=== PATIENT | male | born 1955 | race Caucasian/White ===

== ENCOUNTER 2017-05-25 09:39 | Emergency (ER) | payer MEDICARE, OTHER ==
[~2017-05-25] VITALS: Ht 177.8 cm; Wt 100.0 kg
[2017-05-25 09:45] VITALS: BP 107/74; PULSE 100; RESP 16; TEMP 98.6; O2SAT 96
[2017-05-25] MEDS ORDERED: OXYC1TAB36 (10:38)
[2017-05-25] MEDS ORDERED: [UNRECOGNIZED DRUG - OTHER] (10:38)
[2017-05-25] MEDS ORDERED: CEPH500C PO (10:38)
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
[2017-05-25 11:25] LABS: AUTOMATED NEUTROPHIL # 6.9 TH/MM3 (1.8-7.7); BASOPHIL % 0.5 % (0.0-2.0); EOSINOPHIL # 0.1 TH/MM3 (0-0.4); EOSINOPHIL % 0.9 % (0.0-4.0); HEMATOCRIT 40.1 % (39.0-51.0); HEMOGLOBIN 13.3 GM/DL (13.0-17.0); LYMPH % 19.9 % (9.0-44.0); LYMPHOCYTE # 1.9 TH/MM3 (1.0-4.8); MEAN CELL VOLUME 96.5 FL (80.0-100.0); MEAN CORPUSCULAR HGB CONC 33.1 % (32.0-36.0); MONO % 6.6 % (0.0-8.0); MONOCYTE # 0.6 TH/MM3 (0-0.9); NEUT % 72.1 % (16.0-70.0); PLATELET COUNT 213 TH/MM3 (150-450); RED BLOOD COUNT 4.15 MIL/MM3 (4.50-5.90); RED CELL DISTRIBUTION WIDTH 14.8 % (11.6-17.2); WHITE BLOOD COUNT 9.5 TH/MM3 (4.0-11.0)
[2017-05-25 11:44] LABS: BILIRUBIN, URINE NEG (NEG); BLOOD, URINE LARGE (NEG); GLUCOSE,URINE NEG (NEG); KETONE, URINE NEG (NEG); NITRITE,URINE POS (NEG); PH, URINE 5.5 (5.0-8.5); URINE COLOR YELLOW (YELLW/STRAW); URINE LEUKOCYTE ESTERASE MOD (NEG)
[2017-05-25 11:49] LABS: SQUAMOUS EPITHELIAL CELL URINE 0-5 /hpf (0-5); WBC, URINE INNUM /hpf (0-5)
[2017-05-25 11:50] LABS: BACTERIA, URINE FEW /hpf
[2017-05-25 11:52] LABS: ALBUMIN 2.4 GM/DL (3.4-5.0); ALKALINE PHOSPHATASE 135 U/L (45-117); ALT (GPT) 19 U/L (12-78); AST (GOT) 23 U/L (15-37); BICARBONATE 34.1 MEQ/L (21.0-32.0); BLOOD UREA NITROGEN 4 MG/DL (7-18); CALCIUM 8.5 MG/DL (8.5-10.1); CHLORIDE 91 MEQ/L (98-107); CREATININE 0.75 MG/DL (0.60-1.30); GLOMERULAR FILTRATION RATE 107 ML/MIN (>89); GLUCOSE,RANDOM 128 MG/DL (74-106); SODIUM (NA) 132 MEQ/L (136-145); TOTAL BILIRUBIN ADULT 0.9 MG/DL (0.2-1.0); TOTAL PROTEIN 7.7 GM/DL (6.4-8.2)
[2017-05-25] MEDS ORDERED: POTASSIUM CHLORIDE 20 MEQ CONTROLLED RELEASE TAB PO ONE ×2 (12:00→14:00)
--- NOTE | 2017-05-25 12:49 | RADRPT ---
EXAM DATE/TIME: 05/25/2017 11:39 [facility] COMPARISON: No previous studies available for comparison. INDICATIONS : Testicular pain and swelling, worse on right side. MEDICAL HISTORY : Chronic obstructive pulmonary disease. Hepatitis C. Congestive heart failure. Arthritis. Diabetes. SURGICAL HISTORY : Appendectomy. Spinal fusion. ENCOUNTER: Initial ACUITY: 4 - 6 days PAIN SCORE: 4/10 LOCATION: Bilateral scrotum. MEASUREMENTS: RIGHT TESTICLE: 4.6 x 3.1 x 2.9 cm LEFT TESTICLE: 3.6 x 2.7 x 2.5cm FINDINGS: RIGHT TESTICLE: There is increased flow in the right testicle and epididymis. The right testicle is larger than the l eft testicle. The epididymis appears prominent. There is a complex hydrocele with multiple septations . LEFT TESTICLE: Left testicle is smaller than the right testicle. There is mild arterial flow seen in the left testic le. No hydrocele is seen. The epididymis is not seen but not enlarged. SCROTUM: There is scrotal swelling. CONCLUSION: Suspect inflammatory change of the right side with increased flow seen in the right testicle and righ t epididymis and complex hydrocele likely related to epididymitis and orchitis. There is skin thicken ing of the scrotum. Lionel Sanabria MD on May 25, 2017 at 12:43 Board Certified Radiologist. This report was verified electronically.
--- NOTE | 2017-05-25 13:38 | RADRPT ---
EXAM DATE/TIME: 05/25/2017 11:11 [facility] COMPARISON: CHEST SINGLE AP, December 28, 2009, 16:54. INDICATIONS : Testicular swelling x 4 days & chronic lower extremity swelling. MEDICAL HISTORY : Congestive heart failure. Chronic obstructive pulmonary disease. Rheumatoid arthritis. Diabetic. Smoker. Hepatitis C. SURGICAL HISTORY : Appendectomy. Fusion, lumbar. ENCOUNTER: Initial ACUITY: 4 - 6 days PAIN SCORE: 1/10 LOCATION: chest FINDINGS: The heart is enlarged. Bibasilar patchiness is noted consistent with atelectasis and/or infiltrate. CONCLUSION: 1. Bibasilar patchiness consistent with atelectasis and/or infiltrate. 2. Cardiomegaly. Kvng Landis MD on May 25, 2017 at 13:35 Board Certified Radiologist. This report was verified electronically.
[2017-05-25] MEDS ORDERED: LEVA500T33 PO (13:42)
[2017-05-25] MEDS ORDERED: POTA-163 PO (13:42)
[2017-05-25] MEDS ORDERED: LEVOFLOXACIN 500 MG TAB PO ONE (14:00)
== END 2017-05-25 14:19 | disposition home or self-care (01) ==
LOC: PHEFT 09:39
DX: N45.1 Epididymitis (principal); N30.01 Acute cystitis with hematuria; B96.20 Unspecified Escherichia coli [E. coli] as the cause of diseases classified elsewhere; E87.6 Hypokalemia; I50.9 Heart failure, unspecified; E11.9 Type 2 diabetes mellitus without complications; B19.20 Unspecified viral hepatitis C without hepatic coma; F17.200 Nicotine dependence, unspecified, uncomplicated; F12.90 Cannabis use, unspecified, uncomplicated
CPT/HCPCS: 71045; 76870; 80053; 81001; 83880; 85025; 87077; 87086; 87186; 93975

== ENCOUNTER 2017-05-29 09:24 | Inpatient (IN) | payer MEDICARE, OTHER ==
[2017-05-29] VITALS (8 sets, daily range): BP systolic 114–150; BP diastolic 66–82; PULSE 83–104; RESP 14–20; TEMP 96.3–98.5; O2SAT 95–99
[~2017-05-29] VITALS: Ht 177.8 cm; Wt 99.8 kg
[~2017-05-29 09:24] MED LIST: CEPH500C PO; LEVA500T33 PO; OXYC1TAB36; POTA-163 PO; [UNRECOGNIZED DRUG - OTHER]
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
[2017-05-29 10:09] LABS: AUTOMATED NEUTROPHIL # 4.1 TH/MM3 (1.8-7.7); BASOPHIL # 0.2 TH/MM3 (0-0.2); BASOPHIL % 2.9 % (0.0-2.0); EOSINOPHIL # 0.1 TH/MM3 (0-0.4); EOSINOPHIL % 1.2 % (0.0-4.0); HEMATOCRIT 40.7 % (39.0-51.0); HEMOGLOBIN 13.4 GM/DL (13.0-17.0); LYMPH % 28.6 % (9.0-44.0); LYMPHOCYTE # 2.2 TH/MM3 (1.0-4.8); MEAN CELL VOLUME 96.3 FL (80.0-100.0); MEAN CORPUSCULAR HEMOGLOBIN 31.8 PG (27.0-34.0); MEAN PLATELET VOLUME 6.8 FL (7.0-11.0); MONO % 12.6 % (0.0-8.0); NEUT % 54.7 % (16.0-70.0); PLATELET COUNT 264 TH/MM3 (150-450); RED BLOOD COUNT 4.22 MIL/MM3 (4.50-5.90); RED CELL DISTRIBUTION WIDTH 15.3 % (11.6-17.2); WHITE BLOOD COUNT 7.6 TH/MM3 (4.0-11.0)
[2017-05-29 10:19] LABS: BILIRUBIN, URINE NEG (NEG); BLOOD, URINE MOD (NEG); GLUCOSE,URINE NEG (NEG); KETONE, URINE NEG (NEG); NITRITE,URINE NEG (NEG); URINE COLOR YELLOW (YELLW/STRAW); URINE LEUKOCYTE ESTERASE SMALL (NEG)
[2017-05-29 10:24] LABS: CHLORIDE 98 MEQ/L (98-107); SODIUM (NA) 139 MEQ/L (136-145)
[2017-05-29 10:27] LABS: CALCIUM 8.9 MG/DL (8.5-10.1)
[2017-05-29 10:28] LABS: ALBUMIN 2.4 GM/DL (3.4-5.0); BICARBONATE 33.4 MEQ/L (21.0-32.0); BLOOD UREA NITROGEN 3 MG/DL (7-18); GLUCOSE,RANDOM 176 MG/DL (74-106)
--- NOTE | 2017-05-29 10:29 | RADRPT ---
EXAM DATE/TIME: 05/29/2017 10:13 [facility] COMPARISON: CHEST SINGLE AP, May 25, 2017, 11:11. INDICATIONS : Pt having testicle pain and swelling, last seen for on 05/25/2017. Pt now having lower back and lower abdominal pain as well. MEDICAL HISTORY : None. SURGICAL HISTORY : None. ENCOUNTER: Subsequent ACUITY: 1 week PAIN SCORE: 8/10 LOCATION: Bilateral abdomen, lower back, testicles FINDINGS: A single view of the chest demonstrates the lungs to be symmetrically aerated without evidence of mas s, infiltrate or effusion. The cardiomediastinal contours are unremarkable except there is now an el ectronic device projecting over the heart, possibly a recorder/monitor. Osseous structures are intac t with a mild dextroscoliosis of the thoracolumbar spine. CONCLUSION: No acute cardiopulmonary process. Ramon Gutierrez MD on May 29, 2017 at 10:25 Board Certified Radiologist. This report was verified electronically.
[2017-05-29 10:31] LABS: ALT (GPT) 23 U/L (12-78); AST (GOT) 30 U/L (15-37); CREATININE 0.68 MG/DL (0.60-1.30); GLOMERULAR FILTRATION RATE 119 ML/MIN (>89)
[2017-05-29 10:32] LABS: TOTAL BILIRUBIN ADULT 0.3 MG/DL (0.2-1.0)
[2017-05-29 10:34] LABS: ALKALINE PHOSPHATASE 138 U/L (45-117)
[2017-05-29 10:36] LABS: LACTIC ACID SEPSIS PROTOCOL 2.8 mmol/L (0.4-2.0)
[2017-05-29 10:42] LABS: BACTERIA, URINE RARE /hpf; SQUAMOUS EPITHELIAL CELL URINE 0-3 /hpf (0-5); WBC, URINE 15-19 /hpf (0-5); WHITE BLOOD CELL CLUMPS FEW
[2017-05-29] MEDS ORDERED: cefTRIAXone INJ 2,000 MG in SODIUM CHLORIDE 0.9% INJ 100 ML IV ONE (10:45)
[2017-05-29] MEDS ORDERED: ONDANSETRON HCL 4 MG/2 ML VIAL IV PUSH ONE (10:45)
[2017-05-29] MEDS ORDERED: SODIUM CHLOR 0.9% 1000 ML INJ 1,000 ML IV ONE ×2 (10:45→11:15)
[2017-05-29] MEDS ORDERED: HYDROmorphone HCL PF 2 MG/ML VIAL IV PUSH ONE (10:45)
[2017-05-29] MEDS ORDERED: POTASSIUM CHLOR 20 MEQ PREMIX 100 ML IV ONE (11:15)
[2017-05-29] MEDS ORDERED: KETOROLAC TROMETHAMINE 30 MG/ML (IVP) VIAL IV PUSH PRN (12:30)
[2017-05-29] MEDS ORDERED: MAGNESIUM HYDROXIDE SUSP 30 ML CUP PO PRN (12:30)
[2017-05-29] MEDS ORDERED: SODIUM CHLORIDE 0.9% FLUSH 10 ML FLUSH IV FLUSH PRN (12:30)
[2017-05-29] MEDS ORDERED: ACETAMINOPHEN 325 MG TAB PO PRN (12:30)
[2017-05-29] MEDS ORDERED: NALOXONE HCL 0.4 MG/ML AMP IV PUSH PRN (12:30)
[2017-05-29] MEDS ORDERED: SODIUM CHLOR 0.9% 1000 ML INJ 1,000 ML IV SCH (13:00)
[2017-05-29] MEDS: POLYETHYLENE GLYCOL 17 GM PKG PO SCH (15:30)
[2017-05-29] MEDS ORDERED: POTASSIUM CHLORIDE 10 MEQ CONTROLLED RELEASE TAB PO ONE (15:30)
[2017-05-29] MEDS ORDERED: RESP: ALBUTEROL 2.5 MG/IPRATROPIUM 0.5 MG NEB (PRN) NEB (15:30)
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
[2017-05-29] MEDS: TAMSULOSIN HCL 0.4 MG CAP PO SCH (18:24)
[2017-05-29] MEDS: oxyCODONE/ACETAMINOPHEN 10 MG/325 MG TAB PO PRN (18:24)
[2017-05-29] MEDS: SODIUM CHLORIDE 0.9% FLUSH 10 ML FLUSH IV FLUSH SCH (21:00)
[2017-05-30] VITALS: BP 115/66; PULSE 84; RESP 20; TEMP 96.3; O2SAT 98
[2017-05-30] MEDS: oxyCODONE/ACETAMINOPHEN 10 MG/325 MG TAB PO PRN ×2 (00:36→08:07)
[2017-05-30 06:12] LABS: AUTOMATED NEUTROPHIL # 3.9 TH/MM3 (1.8-7.7); BASOPHIL % 0.2 % (0.0-2.0); EOSINOPHIL # 0.1 TH/MM3 (0-0.4); HEMATOCRIT 34.5 % (39.0-51.0); HEMOGLOBIN 11.1 GM/DL (13.0-17.0); LYMPH % 30.5 % (9.0-44.0); MEAN CELL VOLUME 96.7 FL (80.0-100.0); MEAN CORPUSCULAR HEMOGLOBIN 31.3 PG (27.0-34.0); MEAN CORPUSCULAR HGB CONC 32.3 % (32.0-36.0); MONO % 9.2 % (0.0-8.0); MONOCYTE # 0.6 TH/MM3 (0-0.9); NEUT % 59.1 % (16.0-70.0); PLATELET COUNT 224 TH/MM3 (150-450); RED BLOOD COUNT 3.56 MIL/MM3 (4.50-5.90); RED CELL DISTRIBUTION WIDTH 15.5 % (11.6-17.2); WHITE BLOOD COUNT 6.6 TH/MM3 (4.0-11.0)
[2017-05-30 06:49] LABS: BICARBONATE 33.4 MEQ/L (21.0-32.0); CALCIUM 7.7 MG/DL (8.5-10.1); CREATININE 0.52 MG/DL (0.60-1.30)
[2017-05-30 08:00] VITALS: BP 122/67; PULSE 90; RESP 16; TEMP 97.9; O2SAT 96
[2017-05-30] MEDS: TAMSULOSIN HCL 0.4 MG CAP PO SCH (08:05)
[2017-05-30] MEDS: POLYETHYLENE GLYCOL 17 GM PKG PO SCH (08:06)
[2017-05-30] MEDS: SODIUM CHLORIDE 0.9% FLUSH 10 ML FLUSH IV FLUSH SCH (08:30)
[2017-05-30] MEDS ORDERED: VARENICLINE 0.5 MG TAB PO SCH (10:00)
[2017-05-30] MEDS ORDERED: TAMSULOSIN HCL 0.4 MG CAP PO SCH (10:00)
--- NOTE | 2017-05-30 10:03 | HHI.PR ---
Subjective Remarks Patient seen and evaluated today in follow-up for epididymitis and urinary tract infection. Overall improved Urology consult appreciated Objective Vitals Vital Signs Date Time Temp Pulse Resp B/P (MAP) Pulse Ox O2 Delivery O2 Flow Rate FiO2 05/30/17 08:00 97.9 90 16 122/67 (85) 96 05/30/17 00:00 96.3 84 20 115/66 (82) 98 05/29/17 20:00 96.3 84 20 116/66 (83) 97 05/29/17 19:30 99 Nasal Cannula 3.00 05/29/17 16:25 96.7 93 16 114/68 (83) 97 05/29/17 16:25 96.7 93 16 114/68 (83) 97 05/29/17 15:15 20 05/29/17 13:00 98.3 86 14 127/75 (92) 97 05/29/17 12:35 05/29/17 12:20 83 18 114/66 (82) 96 Nasal Cannula 2.00 05/29/17 11:20 16 05/29/17 11:05 97 Nasal Cannula 2.00 05/29/17 10:55 88 18 127/82 (97) 99 Room Air I/O 05/29/17 05/29/17 05/29/17 05/30/17 05/30/17 05/30/17 07:00 15:00 23:00 07:00 15:00 23:00 Intake Total 100 ml 684 ml 240 ml Output Total 375 ml 500 ml Balance 100 ml 309 ml -500 ml 240 ml Intake Oral 684 ml 240 ml IV Total 100 ml Output Urine Total 375 ml 500 ml # Bowel Movements 0 0 Result Diagram: 05/30/17 0513 05/30/17 0513 Imaging Last Impressions Chest X-Ray 05/29/17 0952 Signed Impressions: Service Date/Time: Monday, May 29, 2017 10:13 - CONCLUSION: No acute cardiopulmonary process. Ramon Gutierrez MD Objective Remarks Scrotal enlargement and edema appears improved Villanueva in place GENERAL: This is a well-nourished, well-developed patient, in no apparent distress. CARDIOVASCULAR: Regular rate and rhythm without murmurs, gallops, or rubs. RESPIRATORY: Clear to auscultation. Breath sounds equal bilaterally. No wheezes , rales, or rhonchi. GASTROINTESTINAL: Abdomen soft, non-tender, nondistended. Normal active bowel sounds MUSCULOSKELETAL: Extremities without clubbing, cyanosis, or edema. NEURO: Alert & Oriented x4 to person, place, time, situation. Moves all ext x4 A/P Problem List: (1) Urinary retention ICD Code: R33.9 - Retention of urine, unspecified Plan: Status post 1 L urine output after Villanueva placed Possible neurogenic bladder, patient admits to previous history of intermittent self-catheterization which he has personally discontinued because he was "tired of getting infections " Maintain Villanueva and urology for further evaluation Add Flomax (2) Paraplegia following spinal cord injury ICD Code: G82.20 - Paraplegia, unspecified Plan: Incomplete per patient but with significant findings currently of urinary retention and weakness in the lower extremities Patient does use a wheelchair for mobility and lives independently PT OT eval for treatment (3) Epididymitis ICD Code: N45.1 - Epididymitis Status: Acute Plan: Continue Rocephin IV, follow-up urine cultures Previous urine cultures were sensitive to Rocephin which she will continue Urology consult pending (4) COPD (chronic obstructive pulmonary disease) ICD Code: J44.9 - Chronic obstructive pulmonary disease, unspecified Plan: Continue with nebulizers Currently stable Chest x-ray unremarkable my review follow clinically Discharge Planning d c home with villanueva urology outpatient Shital Tabor MD May 30, 2017 10:03
--- NOTE | 2017-05-30 10:08 | HHI.FF ---
Face to Face Verification Diagnosis: (1) Paraplegia following spinal cord injury (2) Urinary retention (3) Epididymitis Home Health Nursing Order: Medical education Signs/symptoms of disease process Nursing assessment with vital signs I have seen patient Zachary Emerson on 05/30/17. My clinical findings support the need for the requested home health care services because: Ltd mobility - disease progression Limited ability to care for self I certify that my clinical findings support that this patient is homebound because: Hx COPD- exertion dyspnea/weakness Unsteady gait/balance Shital Tabor MD May 30, 2017 10:08
--- NOTE | 2017-05-30 10:14 | MB ---
cc: Jonathan Arellano DO DATE: 05/30/2017 HISTORY OF PRESENT ILLNESS: This is a 61-year-old male who presents with a history of dysuria and burning and presumed UTI, which occurred approximately 10 days ago. He noted, after 3 days, a large amount of swelling in his scrotum and then eventually presented to the emergency room. He had this problem approximately 15-20 years ago while living in [place]. He reports a history of nocturia 2-3 times with incomplete emptying during the day. He states he gets 1-2 urinary tract infections per year. He underwent a scrotal ultrasound on admission demonstrating inflammatory change of the right testicle with increased flow of the testicle and epididymitis with a complex hydrocele related to epididymal orchitis. Skin thickening of the scrotum was identified. PAST MEDICAL HISTORY: Includes hepatitis C, chronic low back pain with lower extremity weakness and numbness at times. PAST SURGICAL HISTORY: Noted back surgery, as well as appendectomy, as well as hammertoe surgery. ALLERGIES: PLEASE REFER TO THE CHART. MEDICATIONS: Please refer to the chart. FAMILY HISTORY: Denies any family history of prostate cancer. SOCIAL HISTORY: He smokes a pack a day for 35 years and drinks alcohol daily. Currently, he lives alone. REVIEW OF SYSTEMS: Notes difficulty with urination at times with burning, incomplete emptying. Right-sided scrotal pain with scrotal swelling and erythema. Denies gait disturbances, bleeding disorders. Denies chest pain or history of an VA. Denies skin lesions. Denies shortness of breath or asthma. Does note some vague abdominal pain at present. Notes constipation. Denies diarrhea. Denies headaches. Denies psychiatric problems. The remaining review of systems were reviewed and were negative. PHYSICAL EXAMINATION: VITAL SIGNS: Temperature 97.9, heart rate 90, respiratory rate 16, 122/67. GENERAL: He is a slightly obese, 61-year-old male in no acute distress. HEENT: Normocephalic, atraumatic. Pupils equal, round, regular and reactive to light. Extraocular movements intact. NECK: Supple. HEART: Regular rate and rhythm. LUNGS: Clear bilaterally. ABDOMEN: Soft. There is some generalized tenderness, but no rebound or guarding. GENITOURINARY: Large scrotum with cellulitis and erythema present with edema. Prasad catheter in place draining clear urine. EXTREMITIES: Show venous stasis disease with hemosiderin deposition bilaterally with 3+ edema. NEUROLOGIC: Cranial nerves 2-12 are intact. LABORATORY DATA: White count 6.6, hemoglobin 11.1, hematocrit 34.5, platelet count of 224. Sodium 142, potassium 3.3, chloride 106, CO2 of 33.4, BUN of 5, creatinine 0.52, glucose of 123. Urinalysis shows 15-19 white cells with few clumps noted, leukocyte esterase is small, nitrite is negative. Again, scrotal ultrasound consistent with right-sided epididymal orchitis with scrotal cellulitis. ASSESSMENT AND PLAN: A 61-year-old male with right epididymal orchitis with history of benign prostatic hypertrophy and obstructive symptoms. Recommend scrotal elevation. Continue Prasad catheter drainage. Continue IV antibiotics. Start Flomax 0.4 mg p.o. at bedtime. Would recommend discharging home with the Prasad catheter and will give a void trial in the office in a few weeks and will reevaluate his scrotum at that time. Maintain scrotal elevation for now. Thank you for the consult and allowing me to participate in the care of this patient. DO KRISH Wallace/MATTHEW , 09:52 AM , 10:13 AM
[2017-05-30] MEDS ORDERED: TAMS5CAP PO (10:44)
[2017-05-30] MEDS ORDERED: AUGM500T7 PO (10:45)
[2017-05-30] MEDS ORDERED: POTASSIUM CHLORIDE 25 MEQ EFFERVESCENT TAB PO ONE (11:00)
[2017-05-30] MEDS ORDERED: NICOTINE 21 MG/24 HR PATCH T-DERMAL PRN (11:00)
[2017-05-30] MEDS ORDERED: cefTRIAXone INJ 1,000 MG in SODIUM CHLORIDE 0.9% INJ 100 ML IV SCH (11:00)
[2017-05-30] MEDS ORDERED: REMOVE OLD PATCH T-DERMAL PRN (11:00)
[2017-05-30 12:15] VITALS: BP 126/64; PULSE 77; RESP 20; TEMP 97.8; O2SAT 97
[2017-05-30] MEDS ORDERED: RESP: ALBUTEROL 2.5 MG/IPRATROPIUM 0.5 MG NEB (SCH) NEB (14:00)
[2017-05-30] MEDS ORDERED: SOD PHOSPHATE/SOD BIPHOSPHATE (ADULT) ENEMA 133ML RECTAL ONE (15:00)
[2017-05-30 16:52] VITALS: BP 141/91; PULSE 87; RESP 14; TEMP 97.8; O2SAT 96
== END 2017-05-30 18:00 | DRG 728 ==
LOC: PHED 09:24 → PHEDA 11:59 → PH3A 12:53
PROVIDERS: ADMIT Hospitalist; ATTEND Hospitalist
PROC: 0T9B70Z Drainage of Bladder with Drainage Device, Via Natural or Artificial Opening (ICD-10-PCS; principal; 2017-05-29)
DX: N45.3 Epididymo-orchitis (principal); G82.20 Paraplegia, unspecified; I50.9 Heart failure, unspecified; N39.0 Urinary tract infection, site not specified; N43.3 Hydrocele, unspecified; J44.9 Chronic obstructive pulmonary disease, unspecified; E11.9 Type 2 diabetes mellitus without complications; N40.1 Benign prostatic hyperplasia with lower urinary tract symptoms; R35.1 Nocturia; R33.9 Retention of urine, unspecified; M54.5 Low back pain; G89.29 Other chronic pain; M19.90 Unspecified osteoarthritis, unspecified site; F12.90 Cannabis use, unspecified, uncomplicated; F17.210 Nicotine dependence, cigarettes, uncomplicated; Z99.3 Dependence on wheelchair; Z86.19 Personal history of other infectious and parasitic diseases; Z66 Do not resuscitate
CPT/HCPCS: 51702; 71045; 80048; 80053; 81001; 83605; 83735; 85025; 87040; 87086; 96365; 96367; 96375; J0696; J1170; J1885; J2405; J3480; J7030

== ENCOUNTER 2017-06-13 14:25 | Emergency (ER) | payer MEDICARE, OTHER ==
[~2017-06-13] VITALS: Ht 177.8 cm; Wt 102.0 kg
[~2017-06-13 14:25] MED LIST changes: +AUGM500T7 PO; -CEPH500C PO; -LEVA500T33 PO; -POTA-163 PO; +TAMS5CAP PO; -[UNRECOGNIZED DRUG - OTHER]
[2017-06-13 14:27] VITALS: BP 132/70; PULSE 98; RESP 20; TEMP 97.7; O2SAT 94
[2017-06-13] MEDS ORDERED: MORPHINE SULFATE 2 MG/ML SYRINGE IV PUSH ONE (14:45)
[2017-06-13] MEDS ORDERED: LEVO500T8 PO (14:49)
[2017-06-13] MEDS ORDERED: INSU1INJ14 SQ (14:49)
[2017-06-13] MEDS ORDERED: POTA1TAB4 PO (14:49)
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
[2017-06-13] MEDS ORDERED: MORPHINE SULFATE 4 MG/ML INJ IV PUSH ONE (15:00)
[2017-06-13] MEDS ORDERED: PIPERACIL-TAZO 3.375 GM PREMIX 50 ML IV ONE (15:00)
[2017-06-13 15:03] LABS: AUTOMATED NEUTROPHIL # 3.8 TH/MM3 (1.8-7.7); BASOPHIL % 0.4 % (0.0-2.0); EOSINOPHIL # 0.2 TH/MM3 (0-0.4); EOSINOPHIL % 3.4 % (0.0-4.0); HEMATOCRIT 37.9 % (39.0-51.0); HEMOGLOBIN 12.4 GM/DL (13.0-17.0); LYMPHOCYTE # 2.4 TH/MM3 (1.0-4.8); MEAN CELL VOLUME 94.9 FL (80.0-100.0); MEAN CORPUSCULAR HEMOGLOBIN 31.1 PG (27.0-34.0); MEAN CORPUSCULAR HGB CONC 32.8 % (32.0-36.0); MEAN PLATELET VOLUME 7.9 FL (7.0-11.0); MONO % 7.6 % (0.0-8.0); MONOCYTE # 0.5 TH/MM3 (0-0.9); NEUT % 54.6 % (16.0-70.0); PLATELET COUNT 276 TH/MM3 (150-450); RED BLOOD COUNT 3.99 MIL/MM3 (4.50-5.90); RED CELL DISTRIBUTION WIDTH 15.3 % (11.6-17.2); WHITE BLOOD COUNT 6.9 TH/MM3 (4.0-11.0)
[2017-06-13 15:12] LABS: CHLORIDE 106 MEQ/L (98-107); SODIUM (NA) 141 MEQ/L (136-145)
[2017-06-13 15:15] LABS: ALBUMIN 2.7 GM/DL (3.4-5.0); BICARBONATE 30.5 MEQ/L (21.0-32.0); CALCIUM 8.7 MG/DL (8.5-10.1)
[2017-06-13 15:16] LABS: BLOOD UREA NITROGEN 10 MG/DL (7-18); GLUCOSE,RANDOM 159 MG/DL (74-106)
[2017-06-13 15:19] LABS: ALT (GPT) 23 U/L (12-78); AST (GOT) 28 U/L (15-37); CREATININE 0.97 MG/DL (0.60-1.30); GLOMERULAR FILTRATION RATE 79 ML/MIN (>89)
[2017-06-13 15:20] LABS: TOTAL BILIRUBIN ADULT 0.3 MG/DL (0.2-1.0); TOTAL PROTEIN 8.1 GM/DL (6.4-8.2)
[2017-06-13 15:21] LABS: ALKALINE PHOSPHATASE 124 U/L (45-117)
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
--- NOTE | 2017-06-13 16:20 | PD ---
Physical Exam Date Seen by Provider: June 13, 2017 Time Seen by Provider: 16:20 Narrative 61-year-old male came to the emergency room with history of scrotal pain. Patient has a chronic history of orchitis for which he was admitted about 2-3 weeks ago in this hospital and was seen by Dr. Arellano. At that time he also had history of urinary retention and UTI issues. Patient was later sent to [facility] and then was discharged home. However he started getting scrotal pain and he went to see his primary care and was restarted on antibiotic. This time he was on Augmentin. Patient says he continues to have the pain. He is here for the pain. He was seen by the previous ER physician. Please refer to her history and physical for further details. Signout was to follow-up on the labs, ultrasound of the testicles and eventually disposition. Blood test results are back and within acceptable limits. Ultrasound of the testicles have been done and shows the chronic complex hydrocele with septations. I went and spoke with the patient for 10-15 minutes. Patient appears very disgruntled and frustrated. He just wants the pain to go away. He was medicated for pain after he came to the emergency room and was also given IV Zosyn. Upon asking patient does not give a straightforward answer to any of my questions but just keeps expressing his frustrations. He does not know whether he was ever referred to a urologist to be seen as an outpatient. I spoke with Dr. Arellano who also happens to be ammonia box tender today and he recalls the patient. He says that patient was asked to follow-up with him but never showed up. He wants to see the patient in 1 week in his office. Listening to patient' s vital signs and blood test result he does not think patient needs to be admitted. He is comfortable keeping the patient on Augmentin and Flomax until he has seen the patient. He also recommended to have a Prasad catheter inserted which I have ordered. As per him patient can be discharged home and follow-up with him as an outpatient. I will go ahead and discharge the patient. I will convey to him about the follow-up with the urologist verbally as well as on discharge paper. Data Data Last Documented VS Vital Signs Date Time Temp Pulse Resp B/P (MAP) Pulse Ox O2 Delivery O2 Flow Rate FiO2 06/13/17 17:28 88 18 126/66 (86) 99 06/13/17 14:27 97.7 Orders Orders Urinalysis - C+S If Indicated (06/13/17 14:28) Iv Access Insert/Monitor (06/13/17 14:42) Complete Blood Count With Diff (06/13/17 14:42) Comprehensive Metabolic Panel (06/13/17 14:42) Us Testicles W Doppler (06/13/17 ) Morphine Inj (Morphine Inj) (06/13/17 14:45) Piperacil-Tazo 3.375 Gm Premix (Zosyn 3. (06/13/17 15:00) Morphine Inj (Morphine Inj) (06/13/17 15:00) Urinary Catheter Insert/Apply (06/13/17 16:10) Potassium Chloride Eff (K-Lyte Cl Eff) (06/13/17 16:30) Urine Culture (06/13/17 16:26) Ed Discharge Order (06/13/17 17:07) Labs Laboratory Tests Test 06/13/17 14:58 06/13/17 16:26 White Blood Count 6.9 TH/MM3 Red Blood Count 3.99 MIL/MM3 Hemoglobin 12.4 GM/DL Hematocrit 37.9 % Mean Corpuscular Volume 94.9 FL Mean Corpuscular Hemoglobin 31.1 PG Mean Corpuscular Hemoglobin Concent 32.8 % Red Cell Distribution Width 15.3 % Platelet Count 276 TH/MM3 Mean Platelet Volume 7.9 FL Neutrophils (%) (Auto) 54.6 % Lymphocytes (%) (Auto) 34.0 % Monocytes (%) (Auto) 7.6 % Eosinophils (%) (Auto) 3.4 % Basophils (%) (Auto) 0.4 % Neutrophils # (Auto) 3.8 TH/MM3 Lymphocytes # (Auto) 2.4 TH/MM3 Monocytes # (Auto) 0.5 TH/MM3 Eosinophils # (Auto) 0.2 TH/MM3 Basophils # (Auto) 0.0 TH/MM3 CBC Comment DIFF FINAL Differential Comment Blood Urea Nitrogen 10 MG/DL Creatinine 0.97 MG/DL Random Glucose 159 MG/DL Total Protein 8.1 GM/DL Albumin 2.7 GM/DL Calcium Level 8.7 MG/DL Alkaline Phosphatase 124 U/L Aspartate Amino Transf (AST/SGOT) 28 U/L Alanine Aminotransferase (ALT/SGPT) 23 U/L Total Bilirubin 0.3 MG/DL Sodium Level 141 MEQ/L Potassium Level 3.2 MEQ/L Chloride Level 106 MEQ/L Carbon Dioxide Level 30.5 MEQ/L Anion Gap 5 MEQ/L Estimat Glomerular Filtration Rate 79 ML/MIN Urine Color YELLOW Urine Turbidity CLEAR Urine pH 5.5 Urine Specific [place] 1.025 Urine Protein NEG mg/dL Urine Glucose (UA) NEG mg/dL Urine Ketones NEG mg/dL Urine Occult Blood TRACE Urine Nitrite NEG Urine Bilirubin NEG Urine Urobilinogen 0.2 MG/DL Urine Leukocyte Esterase TRACE Urine RBC 0-3 /hpf Urine WBC 9-14 /hpf Urine WBC Clumps FEW Urine Squamous Epithelial Cells 0-5 /hpf Microscopic Urinalysis Comment CULTURE INDICATED MDM Supervised Visit with JIM: No Narrative Course 4:35 PM I was told by the nurse that 1500 mL of urine came out when she put the Prasad catheter. Patient feels comfortable after this. Physician Communication Physician Communication Dr. Arellano Diagnosis Primary Impression: Urinary retention Additional Impressions: Orchitis, bilateral Chronic pain in testicle Referrals: Jonathan Arellano DO 1 week Additional Instruction: Please follow-up with the urologist in 1 week was name and number been provided to you on this discharge paper. You have to call the office tomorrow to get the exact date and time for the follow-up. Continue with the Augmentin and Flomax until you have seen the urologist. Take the pain medication as per the prescription direction. Med/Other Pt SpecificInfo: Prescription(s) given Scripts Hydrocodone-Acetaminophen (Hydrocodone-Acetaminophen) 5-325 mg Tab 1 TAB PO Q6H Y for PAIN, #15 TAB 0 Refills Prov: Molly Mcgregor MD 06/13/17 Disposition: 01 DISCHARGE HOME Condition: Stable Molly Mcgregor MD June 13, 2017 16:20
[2017-06-13] MEDS ORDERED: POTASSIUM CHLORIDE 25 MEQ EFFERVESCENT TAB PO ONE (16:30)
[2017-06-13] MEDS ORDERED: HYDR-3516 PO (16:35)
[2017-06-13 16:50] LABS: BILIRUBIN, URINE NEG (NEG); BLOOD, URINE TRACE (NEG); GLUCOSE,URINE NEG (NEG); KETONE, URINE NEG (NEG); NITRITE,URINE NEG (NEG); PH, URINE 5.5 (5.0-8.5); URINE COLOR YELLOW (YELLW/STRAW); URINE LEUKOCYTE ESTERASE TRACE (NEG)
[2017-06-13 17:05] LABS: RBC, URINE 0-3 /hpf (0-3); SQUAMOUS EPITHELIAL CELL URINE 0-5 /hpf (0-5); WHITE BLOOD CELL CLUMPS FEW
[2017-06-13 17:28] VITALS: BP 126/66
== END 2017-06-13 17:31 | disposition home or self-care (01) ==
LOC: PHED 14:25
DX: R33.9 Retention of urine, unspecified (principal); N45.2 Orchitis; N45.1 Epididymitis; I50.9 Heart failure, unspecified; M19.90 Unspecified osteoarthritis, unspecified site; J44.9 Chronic obstructive pulmonary disease, unspecified; E11.9 Type 2 diabetes mellitus without complications; F17.200 Nicotine dependence, unspecified, uncomplicated; Z86.19 Personal history of other infectious and parasitic diseases
CPT/HCPCS: 51702; 76870; 80053; 81001; 85025; 87086; 93975; 96365; 96375; 99285; J2270; J2543